=== PATIENT | female | born 1945 | race Caucasian/White ===

== ENCOUNTER 2016-09-07 10:11 | Observation (INO) | payer BC, MEDICARE ==
[~2016-09-07] VITALS: Ht 165.1 cm; Wt 97.8 kg
[~2016-09-07 10:11] MED LIST: AMIO200T PO; AMIO400T PO; APIX5TAB PO; ASPI81CH CHEW; FURO10IN; LISI-519 PO; LISI10TA3 PO; METO-309 PO
[2016-09-07 10:37] VITALS: BP 140/87; PULSE 116; RESP 18; TEMP 98.4; O2SAT 98
[2016-09-07] MEDS ORDERED: CELE200C PO (11:11)
[2016-09-07] MEDS ORDERED: ALLO100T PO (11:11)
[2016-09-07] MEDS ORDERED: NEXI40CA PO (11:11)
[2016-09-07] MEDS ORDERED: CLON0.5T PO (11:11)
--- NOTE | 2016-09-07 11:42 | PD ---
HPI Chief Complaint: Cardiac Complaint Time Seen by Provider: 11:34 Travel History International Travel<30 days: No Contact w/Intl Traveler<30days: No Traveled to known affect area: No History of Present Illness HPI This is a 71-year-old female who is status post cardiac ablation by Dr. Naeem Lao, who presents here at the request Dr. Lao for admission. The patient apparently has had an elevated heart rate despite having her previous ablation. She denies any chest pain, chest pressure. Her heart rate is in the lower 100s. There are no other complaints time my examination. PFSH Past Medical History Hx Anticoagulant Therapy: Yes Arthritis: Yes Heart Rhythm Problems: Yes (afib/aflutter) Cardiovascular Problems: Yes Chemotherapy: No Chest Pain: Yes COPD: Yes Diabetes: No Hypertension: Yes Respiratory: No Tetanus Vaccination: < 5 Years Past Surgical History Hysterectomy: No Social History Alcohol Use: Yes (1X WEEK) Tobacco Use: No Substance Use: No Allergies-Medications (Allergen,Severity, Reaction): Coded Allergies: No Known Allergies (Unverified , 09/07/16) Reported Meds & Prescriptions Reported Meds & Active Scripts Active Amiodarone (Amiodarone HCl) 200 Mg Tab 200 Mg PO DAILY Lopressor (Metoprolol Tartrate) 50 Mg Tab 50 Mg PO BID Reported Celebrex (Celecoxib) 200 Mg Cap 200 Mg PO BID Clonazepam 0.5 Mg Tab 0.5 Mg PO BID Allopurinol 100 Mg Tab 100 Mg PO DAILY Nexium (Esomeprazole DR) 40 Mg Capdr 40 Mg PO DAILY Lisinopril 5 Mg Tab 5 Mg PO DAILY Eliquis (Apixaban) 5 Mg Tab 5 Mg PO BID Review of Systems Except as stated in HPI: all other systems reviewed are Neg General / Constitutional: No: Fever, Chills HENT: No: Lightheadedness Cardiovascular: Positive: Tachycardia, No: Chest Pain or Discomfort Respiratory: No: Cough, Shortness of Breath Gastrointestinal: No: Nausea, Vomiting Musculoskeletal: No: Weakness, Pain Neurologic: No: Weakness, Dizziness Physical Exam Narrative GENERAL: Well-nourished, well-developed patient, in no acute rest her distress.. SKIN: Warm and dry. HEAD: Normocephalic/atraumatic. EYES: No scleral icterus. No injection or drainage. NECK: Supple, trachea midline. CARDIOVASCULAR: Rate in the low 100s. No obvious murmurs gallops or rubs. RESPIRATORY: Breath sounds equal bilaterally. No accessory muscle use. GASTROINTESTINAL: Abdomen soft, non-tender, nondistended. MUSCULOSKELETAL: No cyanosis, or edema. NEUROLOGICAL: Awake and alert. Cranial nerves II through XII intact. Motor grossly within normal limits. Five out of 5 muscle strength in all muscle groups. Normal speech. Data Data Last Documented VS Vital Signs Date Time Temp Pulse Resp B/P Pulse Ox O2 Delivery O2 Flow Rate FiO2 09/07/16 10:37 98.4 116 18 140/87 98 Orders Electrocardiogram (09/07/16 ) Complete Blood Count With Diff (09/07/16 11:35) Basic Metabolic Panel (Bmp) (09/07/16 11:35) Prothrombin Time / Inr (Pt) (09/07/16 11:35) Act Partial Throm Time (Ptt) (09/07/16 11:35) Place In Observation (09/07/16 ) Vital Signs (Adult) Q4H (09/07/16 11:53) Activity Oob With Assistance (09/07/16 11:53) ^ Document Photographer / Telemetry .CONTINUOUS (09/07/16 11:53) Sodium Chloride 0.9% Flush (Ns Flush) (09/07/16 12:00) Sodium Chloride 0.9% Flush (Ns Flush) (09/07/16 21:00) Acetaminophen (Tylenol) (09/07/16 12:00) Ondansetron Inj (Zofran Inj) (09/07/16 12:00) Bisacodyl Supp (Dulcolax Supp) (09/07/16 12:00) Magnesium Hydroxide Liq (Milk Of Magnesi (09/07/16 12:00) Basic Metabolic Panel (Bmp) (09/08/16 06:00) Complete Blood Count With Diff (09/08/16 06:00) Scd Bilateral/Knee High ELLIOTT.BID (09/07/16 11:53) Naloxone Inj (Narcan Inj) (09/07/16 12:00) Diet Npo Except Meds (09/07/16 Lunch) Consult Cardiology (09/07/16 ) Admit Order (Ed Use Only) (09/07/16 11:55) MDM Medical Decision Making Medical Screen Exam Complete: Yes Emergency Medical Condition: Yes Differential Diagnosis SVT versus the be PW versus sinus tachycardia Narrative Course 71-year-old female who status post cardiac ablation, who presents here at the request of her customer response representative for admission. has recurrent tachycardia. She has a heart rate in the 120s. The patient has no chest pain, chest pressure. I spoke with Dr. Naeem Lao, patient's customer response representative, who requested we admit the patient to the hospital service. He is requested that she stay nothing by mouth as he will likely take her for procedure. There is a call out to the [facility] hospitalist team. Diagnosis Primary Impression: Tachycardia, paroxysmal Additional Impression: History of radiofrequency ablation (RFA) procedure for cardiac arrhythmia Jacoby Finnegan MD Sep 07, 2016 11:42
[2016-09-07] MEDS ORDERED: NALOXONE HCL 0.4 MG/ML AMP IV PRN (12:00)
[2016-09-07] MEDS ORDERED: BISACODYL 10 MG SUPP PR PRN (12:00)
[2016-09-07] MEDS ORDERED: ONDANSETRON HCL 4 MG/2 ML VIAL IVP PRN (12:00)
[2016-09-07] MEDS ORDERED: SODIUM CHLORIDE 0.9% FLUSH 5 ML FLUSH FLUSH PRN (12:00)
[2016-09-07] MEDS ORDERED: MAGNESIUM HYDROXIDE SUSP 30 ML CUP PO PRN (12:00)
[2016-09-07] MEDS ORDERED: ACETAMINOPHEN 325 MG TAB PO PRN (12:00)
[2016-09-07 12:18] LABS: AUTOMATED NEUTROPHIL # 7.5 TH/MM3 (1.8-7.7); BASOPHIL # 0.1 TH/MM3 (0-0.2); BASOPHIL % 1.1 % (0.0-2.0); EOSINOPHIL # 0.9 TH/MM3 (0-0.4); EOSINOPHIL % 8.7 % (0.0-4.0); HEMATOCRIT 35.5 % (35.0-46.0); HEMO FLAGS DIFF FINAL; LYMPH % 10.8 % (9.0-44.0); LYMPHOCYTE # 1.1 TH/MM3 (1.0-4.8); MEAN CELL VOLUME 94.5 FL (80.0-100.0); MEAN CORPUSCULAR HEMOGLOBIN 31.1 PG (27.0-34.0); MEAN CORPUSCULAR HGB CONC 32.9 % (32.0-36.0); MONO % 7.1 % (0.0-8.0); NEUT % 72.3 % (16.0-70.0); PLATELET COUNT 260 TH/MM3 (150-450); RED BLOOD COUNT 3.76 MIL/MM3 (4.00-5.30); WHITE BLOOD COUNT 10.3 TH/MM3 (4.0-11.0)
[2016-09-07 12:30] LABS: APTT (PATIENT) 29.9 SEC (24.3-30.1)
[2016-09-07 12:44] LABS: BICARBONATE 28.1 MEQ/L (21.0-32.0)
[2016-09-07 12:45] LABS: POTASSIUM 4.6 MEQ/L (3.5-5.1)
--- NOTE | 2016-09-07 14:00 | HHI.HP ---
[facility] Service [facility] Primary Care Physician Dori Thomason Admission Diagnosis recurrent tachycardia, s/p cardiac ablation Diagnoses: Chief Complaint: Recurrent tachycardia. Travel History International Travel<30 Days: No Contact w/Intl Traveler <30 Da: No Traveled to Known Affected Are: No History of Present Illness Ms. Freeman is a 71-year-old female with a history of hypertension, hyperlipidemia, atrial fibrillation status post multiple cardioversion who presented to the emergency department the advice of Dr. Lao (EP) from his clinic. Patient was on originally evaluated and managed at [facility] in [facility]. However despite multiple cardioversion, atrial fibrillation was difficult to control and thus patient was referred to Dr. Lao. Patient underwent radiofrequency ablation for atrial fibrillation on08/14/2016. Patient was discharged on lisinopril, amiodarone, apixaban, metoprolol. Digoxin and Cardizem were discontinued. Currently, patient denies any chest pain , SOB, fever, chills. Denies any changes in bowel or bladder habits. Dr. Lao plans to perform ablation tomorrow afternoon. Review of Systems ROS Limitations: Other (negative except as noted in the history of present illness) Past Family Social History Past Medical History Atrial fibrillation, hypertension, COPD Past Surgical History Bilateral knee surgery, right shoulder surgery. Reported Medications Amiodarone (Amiodarone HCl) 200 Mg Tab 200 Mg PO DAILY Lopressor (Metoprolol Tartrate) 50 Mg Tab 50 Mg PO BID Celebrex (Celecoxib) 200 Mg Cap 200 Mg PO BID Clonazepam 0.5 Mg Tab 0.5 Mg PO BID Allopurinol 100 Mg Tab 100 Mg PO DAILY Nexium (Esomeprazole DR) 40 Mg Capdr 40 Mg PO DAILY Lisinopril 5 Mg Tab 5 Mg PO DAILY Eliquis (Apixaban) 5 Mg Tab 5 Mg PO BID Allergies: Coded Allergies: No Known Allergies (Unverified , 09/07/16) Family History Sister - Alzheimer's Brother - Afib Father - PR. Social History Patient drinks about once a week. Denies using tobacco or illicit drugs. Physical Exam Vital Signs Vital Signs Date Time Temp Pulse Resp B/P Pulse Ox O2 Delivery O2 Flow Rate FiO2 09/07/16 10:37 98.4 116 18 140/87 98 Physical Exam GENERAL: This is a well-nourished, well-developed patient, in no apparent distress. SKIN: No rashes, ecchymoses or lesions. Warm and dry. HEAD: Atraumatic. Normocephalic. No temporal or scalp tenderness. EYES: Pupils equal round and reactive. No injection or drainage. ENT: Nose without bleeding, purulent drainage or septal hematoma. Airway patent. NECK: Trachea midline. No lymphadenopathy. Supple, nontender, no meningeal signs. CARDIOVASCULAR: Regular rhythm, tachycardic without murmurs, gallops, or rubs. No JVD. RESPIRATORY: Clear to auscultation. Breath sounds equal bilaterally. No wheezes , rales, or rhonchi. GASTROINTESTINAL: Abdomen soft, non-tender, nondistended. No guarding. MUSCULOSKELETAL: Extremities without clubbing, cyanosis, or edema. NEUROLOGICAL: Awake and alert. Cranial nerves II through XII intact. No focal neurological deficits. Normal speech. Laboratory Laboratory Tests Test 09/07/16 11:50 White Blood Count 10.3 Red Blood Count 3.76 Hemoglobin 11.7 Hematocrit 35.5 Mean Corpuscular Volume 94.5 Mean Corpuscular Hemoglobin 31.1 Mean Corpuscular Hemoglobin 32.9 Concent Red Cell Distribution Width 15.0 Platelet Count 260 Mean Platelet Volume 8.6 Neutrophils (%) (Auto) 72.3 Lymphocytes (%) (Auto) 10.8 Monocytes (%) (Auto) 7.1 Eosinophils (%) (Auto) 8.7 Basophils (%) (Auto) 1.1 Neutrophils # (Auto) 7.5 Lymphocytes # (Auto) 1.1 Monocytes # (Auto) 0.7 Eosinophils # (Auto) 0.9 Basophils # (Auto) 0.1 CBC Comment DIFF FINAL Differential Comment Prothrombin Time 11.0 Prothromb Time International 1.0 Ratio Activated Partial 29.9 Thromboplast Time Sodium Level 138 Potassium Level 4.6 Chloride Level 101 Carbon Dioxide Level 28.1 Anion Gap 9 Blood Urea Nitrogen 17 Creatinine 1.06 Estimat Glomerular Filtration 51 Rate Random Glucose 117 Calcium Level 9.7 Result Diagram: 09/07/16 1150 09/07/16 1150 Assessment and Plan Problem List: (1) Atrial fibrillation ICD Code: I48.91 Status: Acute (2) Hypertension ICD Code: I10 Status: Acute (3) Anxiety ICD Code: F41.9 Status: Acute (4) Arthritis ICD Code: M19.90 Status: Acute Assessment and Plan Ms. Freeman is a pleasant 71 year old female with a history of atrial fibrillation status post multiple cardioversion, radiofrequency ablation in August 2016 who presents to the emergency department on the advice of her legal department manager with regards to her elevated heart rate. Patient denies any chest pain, shortness of breath, fever or chills. - Atrial tachyarrhythmia - Currently asymptomatic but has been symptomatic due to high heart rate. - Cardiology (Dr. Lao) consulted and plans to do EP study and radiofrequency ablation tomorrow 09/08/2015 - Continue Metoprolol 50mg BID, Amiodarone 200mg Qday, Apixaban 5mg BID - NPO except meds after breakfast on 09/08/2016. - Hypertension - continue lisinopril 10mg Qday - Arthritis - Continue Celecoxib. - Anxiety - continue Clonazepam 0.5mg BID Full code. Apixaban. Karrie Marie DO Sep 07, 2016 14:00
[2016-09-07] MEDS ORDERED: LORazepam 2 MG/ML VIAL IV PUSH ONE (14:15)
[2016-09-07] MEDS ORDERED: SODIUM CHLORID 0.9% 500 ML INJ 500 ML IV SCH ×2 (14:30)
--- NOTE | 2016-09-07 15:02 | MB ---
cc: CATRACHITA AWAD M.D. DATE OF CONSULTATION: 09/07/2016 REASON FOR CONSULTATION Atrial fibrillation, atrial tachycardia with fast ventricular response. HISTORY OF PRESENT ILLNESS Mrs. Freeman is a 71-year-old female with atrial fibrillation, multiple previous cardioversion, who was transferred 3-4 weeks ago for atrial fibrillation ablation. The ablation was successful she was discharged home. For the past week she was having atrial fibrillation, atrial tachycardia, rate very difficult to control. She was placed on amiodarone and metoprolol. She was admitted through the emergency room. I was consulted for evaluation. The chart was reviewed. The patient was evaluated. ALLERGIES None. SOCIAL HISTORY Negative for smoking and drinking. FAMILY HISTORY Noncontributory to her current medical condition. MEDICATIONS 1. Lisinopril 5 mg a day. 2. Amiodarone 200 mg a day. 3. Eliquis 5 mg twice a day. 4. Allopurinol. 5. Clonazepam. 6. Metoprolol 50 mg twice a day. 7. Celebrex. 8. Nexium 40 mg a day. REVIEW OF SYSTEMS She refers shortness of breath and palpitations, but no chest pain or chest discomfort. PHYSICAL EXAMINATION GENERAL: Alert, fully oriented, in bed. VITAL SIGNS: Blood pressure 140/887, pulse 118-120, respiratory rate 18. LUNGS: Ventilated. CARDIOVASCULAR: S1, S2, regular. ABDOMEN: Soft. No mass. Obese. EXTREMITIES: No edema. EKG DATA Electrocardiogram: Atrial fibrillation, possible atrial tachyarrhythmia. LABORATORY DATA Hemoglobin 11.7, white blood cell count 10.3. Potassium 4.6, creatinine 1.06. INR 1.0. ASSESSMENT/RECOMMENDATION Mrs. Freeman has possible atrial tachyarrhythmia coming from the left atrium. She is very symptomatic, heart rate not controlled with medication. She is on Eliquis. At this point I discussed with her an electrophysiology study and ablation. The risks, the nature and the benefit of the procedure were clearly stated to her. The risks include pneumothorax, cardiac perforation, stroke and even . She understood and agreed to proceed. Also we did talk about medical management and possible cardioversion. She opted for ablation. She took Eliquis this morning. I will stop the Eliquis tonight and then ablation will be done tomorrow afternoon. MD SYEDA Henriquez /2:36 PM /2:55 PM
[2016-09-07 19:00] VITALS: BP 108/55; PULSE 120; RESP 18; O2SAT 98
[2016-09-07] MEDS: SODIUM CHLORIDE 0.9% FLUSH 5 ML FLUSH FLUSH SCH (20:52)
[2016-09-07] MEDS: clonazePAM 0.5 MG TAB PO SCH (20:54)
[2016-09-07] MEDS: METOPROLOL TARTRATE 50 MG TAB PO SCH ×2 (20:54→21:00)
[2016-09-07 21:00] VITALS: BP 88/53; PULSE 109; RESP 18; O2SAT 97
[2016-09-07] MEDS: CELECOXIB 200 MG CAP PO SCH ×2 (21:00→21:42)
[2016-09-07] MEDS: APIXABAN 5 MG TABLET PO SCH (21:42)
[2016-09-07 23:00] VITALS: BP 118/57; PULSE 115; RESP 16; O2SAT 98
[2016-09-08] VITALS (9 sets, daily range): BP systolic 109–133; BP diastolic 60–88; PULSE 78–123; RESP 16–20; TEMP 95.7–99; O2SAT 97–99
[2016-09-08 06:13] LABS: AUTOMATED NEUTROPHIL # 6.6 TH/MM3 (1.8-7.7); BASOPHIL # 0.1 TH/MM3 (0-0.2); EOSINOPHIL % 10.4 % (0.0-4.0); HEMO FLAGS DIFF FINAL; LYMPH % 13.7 % (9.0-44.0); LYMPHOCYTE # 1.3 TH/MM3 (1.0-4.8); MEAN CELL VOLUME 93.8 FL (80.0-100.0); MEAN CORPUSCULAR HEMOGLOBIN 31.2 PG (27.0-34.0); MEAN CORPUSCULAR HGB CONC 33.3 % (32.0-36.0); MONO % 7.8 % (0.0-8.0); NEUT % 67.1 % (16.0-70.0); PLATELET COUNT 228 TH/MM3 (150-450); RED BLOOD COUNT 3.52 MIL/MM3 (4.00-5.30); RED CELL DISTRIBUTION WIDTH 14.6 % (11.6-17.2); WHITE BLOOD COUNT 9.8 TH/MM3 (4.0-11.0)
[2016-09-08 06:35] LABS: BICARBONATE 29.4 MEQ/L (21.0-32.0); POTASSIUM 4.1 MEQ/L (3.5-5.1)
[2016-09-08] MEDS: APIXABAN 5 MG TABLET PO SCH ×2 (07:07→22:08)
[2016-09-08] MEDS ORDERED: AMIODARONE 200 MG TAB PO SCH (09:00)
[2016-09-08] MEDS: CELECOXIB 200 MG CAP PO SCH ×2 (09:00→21:00)
[2016-09-08] MEDS: LISINOPRIL 5 MG TAB PO SCH (09:20)
[2016-09-08] MEDS: ALLOPURINOL 100 MG TAB PO SCH (09:20)
[2016-09-08] MEDS: METOPROLOL TARTRATE 50 MG TAB PO SCH ×2 (09:20→22:08)
[2016-09-08] MEDS: PANTOPRAZOLE SOD 40 MG DELAYED RELEASE TAB PO SCH (09:21)
[2016-09-08] MEDS: SODIUM CHLORIDE 0.9% FLUSH 5 ML FLUSH FLUSH SCH ×2 (09:21→21:00)
[2016-09-08] MEDS: clonazePAM 0.5 MG TAB PO SCH ×2 (10:01→22:08)
--- NOTE | 2016-09-08 11:24 | HHI.PR ---
Subjective Remarks Follow up for atrial tachyarrhythmia. Patient is currently doing well. Denies any chest pain, shortness of breath, fever or chills. She did not eat breakfast and currently nothing by mouth. Objective Vitals Vital Signs Date Time Temp Pulse Resp B/P Pulse Ox O2 Delivery O2 Flow Rate FiO2 09/08/16 08:15 Room Air 09/08/16 08:00 95.7 123 18 120/68 98 09/08/16 04:00 99.0 120 18 116/60 98 09/08/16 01:45 97.6 117 18 133/77 97 09/08/16 01:45 97 Room Air 09/07/16 23:00 115 16 118/57 98 Nasal Cannula 2 09/07/16 21:00 109 18 88/53 97 Nasal Cannula 2 09/07/16 19:00 120 20 94 Nasal Cannula 2 09/07/16 19:00 120 18 108/55 98 Nasal Cannula 2 I/O 09/07/16 09/07/16 09/07/16 09/08/16 09/08/16 09/08/16 07:00 15:00 23:00 07:00 15:00 23:00 Intake Total 0 ml Balance 0 ml Intake Oral 0 ml # Voids 1 # Bowel Movements 0 Result Diagram: 09/08/16 0544 09/08/16 0544 Objective Remarks GENERAL: Alert, oriented 3 SKIN: Warm and dry. HEAD: Normocephalic. EYES: No scleral icterus. No injection or drainage. NECK: Supple, trachea midline. No JVD or lymphadenopathy. CARDIOVASCULAR: Tachycardic and regular rhythm without murmurs, gallops, or rubs. RESPIRATORY: Breath sounds equal bilaterally. No accessory muscle use. GASTROINTESTINAL: Abdomen soft, non-tender, nondistended. MUSCULOSKELETAL: No cyanosis, or edema. BACK: Nontender without obvious deformity. No CVA tenderness. Procedures None A/P Problem List: (1) Atrial fibrillation ICD Code: I48.91 Status: Acute (2) Hypertension ICD Code: I10 Status: Acute (3) Anxiety ICD Code: F41.9 Status: Acute (4) Arthritis ICD Code: M19.90 Status: Acute Assessment and Plan Ms. Freeman is a pleasant 71 year old female with a history of atrial fibrillation status post multiple cardioversion, radiofrequency ablation in August 2016 who presents to the emergency department on the advice of her concrete stone finishing supervisor with regards to her elevated heart rate. Patient denies any chest pain, shortness of breath, fever or chills. - Atrial tachyarrhythmia - Currently asymptomatic but has been symptomatic due to high heart rate. - Cardiology (Dr. Lao) consulted and plans to do EP study and radiofrequency ablation on 09/08/2015 - Continue Metoprolol 50mg BID, Amiodarone 200mg Qday, Apixaban 5mg BID - NPO except meds - Apparently patient was on Diltiazem CD 180mg Qday prior to this admission. This was given by Dr. Lao. Will re-start this Diltiazem. - Hypertension - continue lisinopril 10mg Qday - Arthritis - Continue Celecoxib. - Anxiety - continue Clonazepam 0.5mg BID Full code. Apixaban. Karrie Marie DO Sep 08, 2016 11:24 am
--- NOTE | 2016-09-08 12:09 | EKG ---
Date Performed: 09/07/2016 Time Performed: 10:53:59 PTAGE: 71 years EKG: SINUS TACHYCARDIA WITH FIRST DEGREE AV BLOCK ABNORMAL ECG PREVIOUS TRACING : 08/14/2016 03.46 DOCTOR: Galo Garcia Interpretating Date/Time 09/08/2016 12:08:38
[2016-09-08] MEDS ORDERED: HEPARIN-D5W INJ 250 ML ONE (16:13)
[2016-09-08] MEDS ORDERED: fentaNYL CITRATE 250 MCG/5 ML AMP ONE (16:14)
[2016-09-08] MEDS ORDERED: ISOPROTERENOL HCL 1 MG/5 ML AMP ONE (16:14)
[2016-09-08] MEDS ORDERED: MIDAZOLAM HCL 2 MG/2 ML VIAL ONE (16:14)
[2016-09-08] MEDS ORDERED: HEPARIN SODIUM - IV 10,000 UNITS/10 ML VIAL ONE ×2 (16:14→17:20)
[2016-09-08] MEDS ORDERED: LEVOFLOXACIN 500 MG PREMIX INJ 100 ML IV ONE (16:15)
[2016-09-08] MEDS ORDERED: HEPARIN-NS/PF INJ 500 ML ONE (16:20)
[2016-09-08] MEDS ORDERED: PROTAMINE SULFATE 50 MG/5 ML VIAL ONE (18:20)
[2016-09-08] MEDS ORDERED: ATROPINE SULFATE 1 MG/ML VIAL IV PRN (18:30)
[2016-09-08] MEDS ORDERED: METOCLOPRAMIDE HCL 10 MG/2 ML VIAL IV PRN (18:30)
[2016-09-08] MEDS ORDERED: BACITRACIN OINT 0.9 GM PKT TOP ONE (18:30)
[2016-09-08] MEDS ORDERED: LIDOCAINE HCL 1% 50 ML VIAL INFIL PRN (18:30)
[2016-09-08] MEDS ORDERED: ONDANSETRON HCL 4 MG/2 ML VIAL IV PRN (18:30)
[2016-09-08] MEDS ORDERED: oxyCODONE/ACETAMINOPHEN 5 MG/325 MG TAB PO PRN ×2 (18:30)
[2016-09-08] MEDS ORDERED: LORazepam 2 MG/ML VIAL IV PRN (18:30)
[2016-09-08] MEDS ORDERED: METOPROLOL TARTRATE 5 MG/5 ML VIAL ONE (18:33)
[2016-09-08] MEDS ORDERED: SODIUM CHLOR 0.9% 250 ML INJ 250 ML IV PRN (19:00)
[2016-09-08] MEDS ORDERED: DO NOT ADM ANY ANTICOAGULANT DRUGS XX PRN (19:13)
[2016-09-08] MEDS ORDERED: AMIODARONE INJ 300 MG in DEXTROSE 5% IN WATER 100ML INJ 97 ML IV ONE ×2 (20:00)
--- NOTE | 2016-09-08 20:10 | EKG ---
Date Performed: 09/08/2016 Time Performed: 19:28:09 PTAGE: 71 years EKG: Probable Sinus rhythm with premature atrial contractions NONSPECIFIC T-WAVE ABNORMALITY ABNORMAL RHYTHM ECG COMPARED TO IL IOR ELECTROCARDIOGRAM, Baseline artifact is present. Rhythm in the prior electrocardiogram is unclea r but may have been atrial flutter. PREVIOUS TRACING : 09/07/2016 10.53 DOCTOR: Leland Lincoln Interpretating Date/Time 09/08/2016 20:09:09
[2016-09-08] MEDS: AMIODARONE 450 MG/D5W (EXCEL) 241 ML IV SCH ×2 (20:30)
[2016-09-09] VITALS (12 sets, daily range): BP systolic 122; BP diastolic 72–75; PULSE 63–82; RESP 18–20; TEMP 97.6–98.5; O2SAT 95–96
[2016-09-09 04:14] LABS: APTT (PATIENT) 27.3 SEC (24.3-30.1); PROTHROMBIN TIME - PATIENT 11.1 SEC (9.8-11.6)
[2016-09-09] MEDS: AMIODARONE 450 MG/D5W (EXCEL) 241 ML IV SCH ×2 (05:50)
[2016-09-09] MEDS: APIXABAN 5 MG TABLET PO SCH (09:00)
[2016-09-09] MEDS: PANTOPRAZOLE SOD 40 MG DELAYED RELEASE TAB PO SCH (09:00)
[2016-09-09] MEDS: CELECOXIB 200 MG CAP PO SCH (09:00)
[2016-09-09] MEDS ORDERED: DILTIAZEM-CD 180 MG CAP ER PO SCH (09:00)
[2016-09-09] MEDS: clonazePAM 0.5 MG TAB PO SCH (09:00)
[2016-09-09] MEDS ORDERED: AMIODARONE 200 MG TAB PO SCH (09:00)
[2016-09-09] MEDS: ALLOPURINOL 100 MG TAB PO SCH (09:00)
[2016-09-09] MEDS: LISINOPRIL 5 MG TAB PO SCH (09:01)
[2016-09-09] MEDS: METOPROLOL TARTRATE 50 MG TAB PO SCH (09:01)
[2016-09-09] MEDS: SODIUM CHLORIDE 0.9% FLUSH 5 ML FLUSH FLUSH SCH (09:01)
--- NOTE | 2016-09-09 10:03 | EKG ---
Date Performed: 09/09/2016 Time Performed: 05:40:12 PTAGE: 71 years EKG: Sinus rhythm with 1st degree A-V block Abnormal ECG NO SIGNIFICANT CHANGE FROM PRIOR ELECTROCARDIOGRAM. PREVIOUS TRACING : 09/08/2016 19.28 DOCTOR: Leland Lincoln Interpretating Date/Time 09/09/2016 10:02:48
--- NOTE | 2016-09-09 12:41 | HHI.PR ---
Subjective Remarks Feeling better Objective Vital Signs Date Time Temp Pulse Resp B/P Pulse Ox O2 Delivery O2 Flow Rate FiO2 09/09/16 12:01 71 09/09/16 11:26 98.5 76 20 122/72 95 09/09/16 11:26 75 09/09/16 09:00 78 09/09/16 08:05 97.6 77 18 122/75 96 09/09/16 08:05 78 09/09/16 08:05 95 Room Air 09/09/16 06:00 74 09/09/16 05:00 75 09/09/16 04:00 63 09/09/16 03:00 75 09/09/16 02:00 82 09/09/16 01:00 70 09/09/16 00:00 72 09/08/16 23:00 80 09/08/16 22:00 80 09/08/16 21:15 98.4 80 16 109/71 95 Nasal Cannula 3 09/08/16 21:00 82 09/08/16 21:00 78 15 107/68 95 Nasal Cannula 3 09/08/16 20:45 76 16 101/64 96 Nasal Cannula 3 09/08/16 20:30 83 14 96/60 95 Nasal Cannula 3 09/08/16 20:15 83 15 108/63 95 Nasal Cannula 3 09/08/16 20:00 78 09/08/16 20:00 82 14 91/57 96 Nasal Cannula 3 09/08/16 19:45 82 16 106/47 94 Nasal Cannula 3 09/08/16 19:30 84 17 103/67 95 Nasal Cannula 3 09/08/16 19:14 97.8 83 14 109/71 95 Nasal Cannula 3 09/08/16 19:00 98.2 82 16 109/66 97 09/08/16 19:00 97 Nasal Cannula 2.00 I/O 09/08/16 09/08/16 09/08/16 09/09/16 09/09/16 09/09/16 07:00 15:00 23:00 07:00 15:00 23:00 Intake Total 0 ml 480 ml 1400 ml 735 ml Output Total 815 ml 820 ml Balance 0 ml 480 ml 585 ml -85 ml Intake Oral 0 ml 480 ml 0 ml 480 ml IV Total 255 ml Other 1400 ml Output Urine Total 800 ml 820 ml Estimated Blood Loss 15 ml # Voids 1 3 # Bowel Movements 0 0 Result Diagram: 09/08/16 0544 09/08/16 0544 Imaging Alert, fully oriented Lungs: ventilated Heart: S1, S2 regular, no gallop Abdomen: soft, no mass Ext: no edema, no hematoma Current Medications Medications (Trade) Dose Ordered Sig/Joya Route Start Time Stop Time Status Last Admin (NS Flush) 2 ml UNSCH PRN FLUSH 09/07/16 12:00 (NS Flush) 2 ml BID FLUSH 09/07/16 21:00 09/09/16 09:01 (Tylenol) 650 mg Q4H PRN PO 09/07/16 12:00 (Dulcolax Supp) 10 mg DAILY PRN MS 09/07/16 12:00 (Milk Of Magnesia Liq) 30 ml Q12H PRN PO 09/07/16 12:00 Naloxone HCl 0.4 mg 0.4 mg UNSCH PRN IV 09/07/16 12:00 Sodium Chloride 500 ml @ 30 mls/hr CONTINUOUS IV 09/07/16 14:30 (NS 500 ml Inj) 500 ml @ 30 mls/hr CONTINUOUS IV 09/07/16 14:30 (Zyloprim) 100 mg DAILY PO 09/08/16 09:00 09/09/16 09:00 (CeleBREX) 200 mg BID PO 09/07/16 21:00 (KlonoPIN) 0.5 mg BID PO 09/07/16 21:00 09/09/16 09:00 (Prinivil) 5 mg DAILY PO 09/08/16 09:00 09/09/16 09:01 (Lopressor) 50 mg BID PO 09/07/16 21:00 09/09/16 09:01 (Protonix) 40 mg DAILY PO 09/08/16 09:00 09/09/16 09:00 (Percocet 5-325 Mg) 1 tab Q4H PRN PO 09/08/16 18:30 (Percocet 5-325 Mg) 2 tab Q4H PRN PO 09/08/16 18:30 (Ativan Inj) 0.5 mg UNSCH PRN IV 09/08/16 18:30 09/09/16 18:29 Atropine Sulfate 0.5 mg 0.5 mg UNSCH PRN IV 09/08/16 18:30 (NS 250 ml Inj) 250 ml @ 500 mls/hr ONCE PRN IV 09/08/16 19:00 09/09/16 18:59 (Reglan Inj) 10 mg Q4H PRN IV 09/08/16 18:30 (Zofran Inj) 4 mg Q4H PRN IV 09/08/16 18:30 (Xylocaine 1% Inj (50 ml)) 10 ml UNSCH PRN INFIL 09/08/16 18:30 09/09/16 18:29 (Eliquis) 5 mg BID PO 09/08/16 21:00 09/09/16 09:00 Miscellaneous Information ALL NURSING DEPARTME... UNSCH PRN XX 09/08/16 19:13 09/09/16 19:12 (Cordarone) 400 mg BID PO 09/09/16 09:00 09/09/16 09:33 Assessment and Plan Problem List: (1) Atrial fibrillation Status: Acute Plan: SP ablation. In sinus rhythm. Doing well Can be DH Follow up in 3 weeks Case discussed with Dr Marie (2) Hypertension Status: Acute Plan: SBP 122 Jose Lao MD Sep 09, 2016 12:40
--- NOTE | 2016-09-09 13:14 | MA ---
cc: CATRACHITA AWAD M.D. DATE: 09/08/2016 PROCEDURE PERFORMED Electrophysiology study, CS cannulation, 3-D mapping, transeptal approach, right and left heart catheterization, intracardiac echo, radiofrequency ablation of atrial fibrillation, pulmonary vein isolation, left atrial tachycardia ablation, I did ablate three different tachyarrhythmia, repeat electrophysiology study on Isuprel infusion, ablation post Isuprel, that was a very complex, difficult case. INDICATION Mrs. Freeman is a 71-year-old female with atrial fibrillation, previous ablation, previous failed cardioversion, tachyarrhythmia very difficult to control, to undergo electrophysiology study and ablation. The risks, the nature and the benefit of the procedure are clearly stated to her. The risks include pneumothorax, cardiac perforation, stroke, need for open heart surgery and even . The patient understood and agreed to proceed. PROCEDURE As written informed consent was obtained prior to transesophageal echo, the patient was kept on the table where she was prepped and draped in the usual sterile fashion. Conscious sedation was initiated and maintained throughout the procedure by the anesthesiologist. Once sedation was verified, the right and left inguinal area was anesthetized with 2% Xylocaine. Using modified Seldinger technique, the left femoral vein was cannulated on three occasions, three guidewires were advanced. Over the wire one 6, one 7 and one 10-Marshallese Hemaquet were advanced. Then the left femoral artery was cannulated on one occasion and one guidewire was advanced. Over the wire a 4-Marshallese Hemaquet was advanced. Then the right femoral vein was cannulated on one occasion, one guidewire was advanced. Over the wire an 8-Marshallese Hemaquet was advanced. Another 6 Marshallese Hemaquet was placed in the right femoral vein for IV infusion. The patient had bad peripheral line. Then through the 6 and 7-Marshallese Hemaquet, two 5-Marshallese Jonathan curved quadripolar electrophysiology catheters were advanced and placed around the His as well as coronary sinus. The patient was in atrial fibrillation, left atrial tachycardia. Through the 10-Marshallese Hemaquet, a Imagry Suh AcuNav intracardiac echo catheter was advanced and placed at the right atrium. Multiple view was obtained. There was no pericardial effusion, pulmonary vein was seen, atrial septal wall visualized. Then the 8-Marshallese Hemaquet in the right femoral vein was exchanged for an IG distal septal sheath that was placed all the way to the superior vena cava. Through the sheath a Renato needle was advanced. Then the sheath, the dilator and the needle were pulled back progressively until foci engaged. Once engaged needle was advanced. RF was delivered for 2-seconds. I was able to cross into the left atrium. Once the needle crossed the dilator was advanced, once the dilator crossed the sheath was advanced, when the sheath crossed the dilator and the needle were removed. I did flood the system, fluid movement was seen in the left atrium that indicates sheath in good position. The patient already received 8000 units of heparin. The goal is an ACT around 350 during the ablation. Through the sheath a [facility]. Kahlil 20 pulse circumferential catheter was advanced. Using Soocial endocardial solution mapping system a two-dimensional configuration of the left atrium was obtained. Point was taken at the left superior inferior vein, right superior inferior vein, mitral valve and appendage. Then the circumferential catheter was replaced by a St. Kahlil TactiCath 3-1/2 mm, 65 cm irrigated tip mapping radiofrequency ablation catheter. First I did proceed with isolation of the right superior and right inferior, there was a lot of activity in the vein. Then the patient was clearly in left atrial tachycardia. Activation map was performed. Early activation shows an anterior wall. Ablation was performed. Cycle length prolonged from 255-310, subsequently to 410. Then further burn was delivered in the area. Then there is a different activation in the anterior portion of the mitral valve. Ablation was performed. The patient break into sinus rhythm. At that point, mapping was performed. Post mapping the patient went back again in atrial tachycardia. ___ posterior portion of the right inferior vein. Ablation was performed. The patient converted into sinus rhythm. Again atrial pacing was performed. The patient went in left atrial tachycardia. At this point there is a different activation in the superior portion of the left superior vein. Ablation was performed. The patient went into sinus rhythm. The patient ___ Isuprel infusion was initiated at 20 yuriy, no tachyarrhythmia was induced, post ablation no tachyarrhythmia was induced, post Isuprel no tachyarrhythmia was induced. At that point the procedure was complete. All catheters were removed. Intracardiac echo showed no pericardial effusion. Transeptal sheath was replaced by 9-Marshallese Hemaquet. The patient is going to be transferred to the recovery room. That was a very complex and difficult case. No incident report. The patient tolerated the procedure. Blood loss was minimal. 1. Electrocardiogram. At baseline the patient was in atrial fibrillation, left atrial tachycardia. Postprocedure the patient is in sinus rhythm. 2. Basic interval. Base cycle length was around 520 milliseconds. Post ablation base cycle length was around 180. AH at 110 and HV around 50 milliseconds. 3. Tachyarrhythmia. Atrial fibrillation was mapped and ablated, atrial tachycardia was ablated, as mentioned before three different atrial tachyarrhythmia was ablated. Ablation was successful. CONCLUSION Successful electrophysiology study, mapping, radiofrequency ablation of atrial fibrillation, left atrial tachyarrhythmia. COMMENT AND RECOMMENDATIONS The patient is going to be transferred to the telemetry unit. Will be observed and when stable can be discharged home. MD VICTORINO Henriquez/SKYE /12:31 PM /12:46 PM
[2016-09-09] MEDS ORDERED: AMIO200T PO ×2 (13:44)
--- NOTE | 2016-09-09 13:47 | HHI.PR ---
Subjective Remarks Follow up for Afib s/p ablation. Pt is doing well, in NSR. No chest pain, SOB, fever, chills. Objective Vitals Vital Signs Date Time Temp Pulse Resp B/P Pulse Ox O2 Delivery O2 Flow Rate FiO2 09/09/16 13:07 68 09/09/16 12:01 71 09/09/16 11:26 98.5 76 20 122/72 95 09/09/16 11:26 75 09/09/16 09:00 78 09/09/16 08:05 97.6 77 18 122/75 96 09/09/16 08:05 78 09/09/16 08:05 95 Room Air 09/09/16 06:00 74 09/09/16 05:00 75 09/09/16 04:00 63 09/09/16 03:00 75 09/09/16 02:00 82 09/09/16 01:00 70 09/09/16 00:00 72 09/08/16 23:00 80 09/08/16 22:00 80 09/08/16 21:15 98.4 80 16 109/71 95 Nasal Cannula 3 09/08/16 21:00 82 09/08/16 21:00 78 15 107/68 95 Nasal Cannula 3 09/08/16 20:45 76 16 101/64 96 Nasal Cannula 3 09/08/16 20:30 83 14 96/60 95 Nasal Cannula 3 09/08/16 20:15 83 15 108/63 95 Nasal Cannula 3 09/08/16 20:00 78 09/08/16 20:00 82 14 91/57 96 Nasal Cannula 3 09/08/16 19:45 82 16 106/47 94 Nasal Cannula 3 09/08/16 19:30 84 17 103/67 95 Nasal Cannula 3 09/08/16 19:14 97.8 83 14 109/71 95 Nasal Cannula 3 09/08/16 19:00 98.2 82 16 109/66 97 09/08/16 19:00 97 Nasal Cannula 2.00 I/O 09/08/16 09/08/16 09/08/16 09/09/16 09/09/16 09/09/16 07:00 15:00 23:00 07:00 15:00 23:00 Intake Total 0 ml 480 ml 1400 ml 735 ml Output Total 815 ml 820 ml Balance 0 ml 480 ml 585 ml -85 ml Intake Oral 0 ml 480 ml 0 ml 480 ml IV Total 255 ml Other 1400 ml Output Urine Total 800 ml 820 ml Estimated Blood Loss 15 ml # Voids 1 3 # Bowel Movements 0 0 Result Diagram: 09/08/16 0544 09/08/1644 Objective Remarks GENERAL: Alert, oriented 3 SKIN: Warm and dry. HEAD: Normocephalic. EYES: No scleral icterus. No injection or drainage. NECK: Supple, trachea midline. No JVD or lymphadenopathy. CARDIOVASCULAR: Tachycardic and regular rhythm without murmurs, gallops, or rubs. RESPIRATORY: Breath sounds equal bilaterally. No accessory muscle use. GASTROINTESTINAL: Abdomen soft, non-tender, nondistended. MUSCULOSKELETAL: No cyanosis, or edema. BACK: Nontender without obvious deformity. No CVA tenderness. Procedures Afib Ablation 09/08/2016. A/P Problem List: (1) Atrial fibrillation ICD Code: I48.91 Status: Acute (2) Hypertension ICD Code: I10 Status: Acute (3) Anxiety ICD Code: F41.9 Status: Acute (4) Arthritis ICD Code: M19.90 Status: Acute Assessment and Plan Ms. Freeman is a pleasant 71 year old female with a history of atrial fibrillation status post multiple cardioversion, radiofrequency ablation in August 2016 who presents to the emergency department on the advice of her business management consultant with regards to her elevated heart rate. Patient denies any chest pain, shortness of breath, fever or chills. - Atrial tachyarrhythmia - Currently asymptomatic but has been symptomatic due to high heart rate. - Cardiology (Dr. Lao) consulted and EP study and radiofrequency ablation on 09/08/2015 - Continue Metoprolol 50mg BID, Amiodarone 400mg BID, Apixaban 5mg BID - Hypertension - continue lisinopril 10mg Qday - Arthritis - Continue Celecoxib. - Anxiety - continue Clonazepam 0.5mg BID Full code. Apixaban. Discharge patient to home Condition on discharge: Improved Heart healthy Diet as tolerated Ad Eusebia activity Rx written: - Amiodarone 400mg BID X 5 days THEN start Amiodarone 200mg Qday. Follow-up with Dr. Lao in 3 weeks. Karrie Marie DO Sep 09, 2016 1:47 pm
--- NOTE | 2016-10-23 14:52 | ETE ---
Study Study Date:09/08/2016 STUDY CONCLUSIONS SUMMARY - Left ventricle: The cavity size was normal. Wall thickness was normal. Systolic function was normal. The estimated ejection fraction was in the range of 60% to 65%. Wall motion was normal; there were no regional wall motion abnormalities. - Aortic valve: No evidence of vegetation. - Mitral valve: No evidence of vegetation. - Left atrium: The atrium was dilated. No evidence of thrombus in the atrial cavity or appendage. No evidence of thrombus in the atrial cavity or appendage. - Right atrium: No evidence of thrombus in the atrial cavity or appendage. - Atrial septum: No defect or patent foramen ovale was identified. Echo contrast study showed no [id number] atrial level shunt, at baseline or with provocation. - Tricuspid valve: No evidence of vegetation. Mild regurgitation. - Pulmonic valve: No evidence of vegetation. If LV function is below 40, please consider prescribing an ACEI or ARB or document rationale for non-use. PROCEDURE DATA Consent: The risks, benefits, and alternatives to the procedure were explained to the patient and informed consent was obtained. Procedure: Initial setup. The patient was brought to the laboratory in the fasting state. Intravenous access was obtained. Surface ECG leads and pulse oximetric signals were monitored. Sedation. Conscious sedation was administered by cardiology staff. Transesophageal echocardiography. Topical anesthesia was obtained using viscous lidocaine. A transesophageal probe was inserted by the attending human resource professional. Image quality was good. Study completion: All IVs inserted during the procedure were removed. The patient tolerated the procedure well. There were no complications. Transesophageal echocardiography. 2D, complete spectral Doppler, and color Doppler. CARDIAC ANATOMY LEFT VENTRICLE: The cavity size was normal. Wall thickness was normal. Systolic function was normal. The estimated ejection fraction was in the range of 60% to 65%. Wall motion was normal; there were no regional wall motion abnormalities. AORTIC VALVE: Trileaflet; mildly thickened, mildly calcified leaflets. Cusp separation was normal. No evidence of vegetation. Doppler: No significant regurgitation. Aorta: - There was no atheroma. There was no evidence for dissection. Aortic root: The aortic root was not dilated. Ascending aorta: The ascending aorta was normal in size. Aortic arch: The aortic arch was normal in size. Descending aorta: The descending aorta was normal in size. MITRAL VALVE: Structurally normal valve. Leaflet separation was normal. No evidence of vegetation. Doppler: Trace regurgitation. LEFT ATRIUM: The atrium was dilated. No evidence of thrombus in the atrial cavity or appendage. No evidence of thrombus in the atrial cavity or appendage. The appendage was morphologically a left appendage, multilobulated, and of normal size. Emptying velocity was normal. ATRIAL SEPTUM: No defect or patent foramen ovale was identified. Echo contrast study showed no [id number] atrial level shunt, at baseline or with provocation. RIGHT VENTRICLE: The cavity size was normal. Wall thickness was normal. Systolic function was normal. PULMONIC VALVE: Structurally normal valve. No evidence of vegetation. TRICUSPID VALVE: Structurally normal valve. Leaflet separation was normal. No evidence of vegetation. Doppler: Mild regurgitation. PULMONARY ARTERY: The main pulmonary artery was normal-sized. RIGHT ATRIUM: The atrium was normal in size. No evidence of thrombus in the atrial cavity or appendage. The appendage was morphologically a right appendage. PERICARDIUM: There was no pericardial effusion. Prepared and signed by Jose Lao [id number]
== END 2016-09-09 14:28 | disposition home or self-care (01) ==
LOC: NEPA 10:11 → NEDA 11:58 → NEDH 19:11 → HCIN 09-08 14:45
PROVIDERS: ADMIT Hospitalist; ATTEND Hospitalist
DX: I48.91 Unspecified atrial fibrillation (principal); I47.1 Supraventricular tachycardia; I10 Essential (primary) hypertension; J44.9 Chronic obstructive pulmonary disease, unspecified; F41.9 Anxiety disorder, unspecified; E78.5 Hyperlipidemia, unspecified; M19.90 Unspecified osteoarthritis, unspecified site; Z79.01 Long term (current) use of anticoagulants
CPT/HCPCS: 00537; 80048; 85002; 85025; 85610; 85730; 93005; 93312; 93320; 93325; 93613; 93623; 93656; 93662; 99285; C1730; C1731; C1732; C1759; C1766; C2630; G0378; J0282; J1644; J1956; J2060; J2250; J2720; J3010; J7060